=== PATIENT | female | born 1995 | race Caucasian/White ===

== ENCOUNTER 2018-06-11 21:57 | Emergency (ER) | payer OTHER ==
[~2018-06-11] VITALS: Ht 165.1 cm; Wt 117.9 kg
[2018-06-11 22:29] VITALS: Ht 165.1 cm; Wt 117.9 kg
[2018-06-12 01:00] VITALS: BP 124/80
[2018-06-12 01:22] LABS: microscopic required? YES; urine erythrocyte 3+ (NEGATIVE)
== END 2018-06-12 01:00 | disposition home or self-care (01) ==
LOC: ED 21:57
PROVIDERS: Specialist
DX: R10.10 Upper abdominal pain, unspecified (principal); N93.9 Abnormal uterine and vaginal bleeding, unspecified; S46.912A Strain of unspecified muscle, fascia and tendon at shoulder and upper arm level, left arm, initial encounter; V49.49XA Driver injured in collision with other motor vehicles in traffic accident, initial encounter; Y93.I9 Activity, other involving external motion; Y92.413 State road as the place of occurrence of the external cause; Y99.8 Other external cause status